=== PATIENT | male | born 1940 | race Caucasian/White ===

== ENCOUNTER 2017-03-23 07:24 | Day surgery (SDC) | payer MEDICARE, OTHER ==
[~2017-03-23] VITALS: Ht 180.3 cm; Wt 93.8 kg
[2017-04-30] MEDS ORDERED: TENORMIN DPS50 MG PO (13:58)
[2017-04-30] MEDS ORDERED: NORVASC DPS10 MG PO (13:58)
[2017-04-30] MEDS ORDERED: LIPITOR40 MG PO (13:58)
[2017-04-30] MEDS ORDERED: GLUCOPHAGE1000 MG PO (13:59)
[2017-04-30] MEDS ORDERED: LOTENSIN DPS20 MG PO (13:59)
[2017-04-30] MEDS ORDERED: GLUCOTROL DPS5 MG PO (13:59)
[2017-04-30] MEDS ORDERED: COLACE-DPS100 MG PO (14:00)
[2017-04-30] MEDS ORDERED: FISH OIL 1,2001 EACH PO (14:00)
[2017-04-30] MEDS ORDERED: ASPIRIN EC81 MG PO (14:00)
[2017-04-30] MEDS ORDERED: THERAPEUTIC MUL1 TAB PO (14:00)
[2017-04-30] MEDS ORDERED: TYLENOL DPS325 MG PO (14:01)
[2017-04-30] MEDS ORDERED: PERCOCET 5 DPS1 TAB PO (14:01)
[2017-04-30] MEDS ORDERED: VALIUM-DPS5 MG PO (14:01)
[2017-04-30] MEDS ORDERED: BACITRACIN15 G1 TP (14:01)
== END 2017-03-23 14:08 | disposition home or self-care (01) ==
LOC: SSS 07:24 → RAD.S 07:24 → SSS 08:30 → RAD.S 14:08
PROC: B02BY0Z Computerized Tomography (CT Scan) of Spinal Cord using Other Contrast, Unenhanced and Enhanced (ICD-10-PCS; principal; 2017-03-23)
DX: M47.26 Other spondylosis with radiculopathy, lumbar region (principal); M43.17 Spondylolisthesis, lumbosacral region; M48.06 Spinal stenosis, lumbar region; G57.03 Lesion of sciatic nerve, bilateral lower limbs

== ENCOUNTER 2017-04-27 05:37 | Inpatient (IN) | payer MEDICARE, OTHER ==
[~2017-04-27] VITALS: Ht 180.3 cm; Wt 91.0 kg
[2017-04-30] MEDS ORDERED: TENORMIN DPS50 MG PO (13:58)
[2017-04-30] MEDS ORDERED: NORVASC DPS10 MG PO (13:58)
[2017-04-30] MEDS ORDERED: LIPITOR40 MG PO (13:58)
[2017-04-30] MEDS ORDERED: GLUCOPHAGE1000 MG PO (13:59)
[2017-04-30] MEDS ORDERED: LOTENSIN DPS20 MG PO (13:59)
[2017-04-30] MEDS ORDERED: GLUCOTROL DPS5 MG PO (13:59)
[2017-04-30] MEDS ORDERED: COLACE-DPS100 MG PO (14:00)
[2017-04-30] MEDS ORDERED: ASPIRIN EC81 MG PO (14:00)
[2017-04-30] MEDS ORDERED: FISH OIL 1,2001 EACH PO (14:00)
[2017-04-30] MEDS ORDERED: THERAPEUTIC MUL1 TAB PO (14:00)
[2017-04-30] MEDS ORDERED: PERCOCET 5 DPS1 TAB PO (14:01)
[2017-04-30] MEDS ORDERED: BACITRACIN15 G1 TP (14:01)
[2017-04-30] MEDS ORDERED: TYLENOL DPS325 MG PO (14:01)
[2017-04-30] MEDS ORDERED: VALIUM-DPS5 MG PO (14:01)
--- NOTE | 2017-05-01 08:28 | OR ---
ADMIT: 04/27/2017 RM/LOC: 509 [facility] MR#: [id number] [address] [address] MARC GIBBS [address] [place] [address] Operative/Delivery Room Report SEX: M AGE: 77 : 1940 Corrected: 04/28/201730 djs SURGERY DATE: 04/27/2017 SURGEON: Darvin Lincoln MD PREOPERATIVE DIAGNOSIS: Low back pain with lumbar 5-sacral 1 isthmic spondylolisthesis with bilateral radiculopathy at L5 and S1. POSTOPERATIVE DIAGNOSIS: Low back pain with lumbar 5-sacral 1 isthmic spondylolisthesis with bilateral radiculopathy at L5 and S1. GRAVEL INSPECTOR: Mimi House APRN PROCEDURE: 1. Wide Alston-type laminectomy at lumbar 5-sacral 1 with decompression of the neural foramina and thecal sac. 2. Wide anterior diskectomy for decompression of thecal sac. 3. Transforaminal lumbar interbody fusion with arthrodesis at lumbar 5- sacral 1, both in the posterolateral as well as transforaminal interbody space. 4. [place] of autograft through same incision with reimplantation after morcellation. 5. Implantation of structural fibular allograft at the L5-S1 intervertebral space. 6. Bilateral posterior pedicle screw placement at lumbar 5-sacral 1. 7. Intraoperative fluoroscopy and computed tomographic imaging. 8. Intraoperative neuromonitoring with no change from baseline in the legs. There was some question of decreased signals in the arms, which underwent troubleshooting throughout the case with Anesthesiology. DESCRIPTION OF PROCEDURE: After gaining informed consent, the patient was taken to the operative theater, placed under general endotracheal anesthesia in supine position, turned prone on a Sj table. All pressure points purposely padded prior to performing the procedure. He was prepped and draped in the usual sterile fashion. A time-out was utilized to ascertain the correct site and side of surgery as well as other pertinent patient historical information. Counts were obtained at the beginning and at the end of the case with no change betwixt the two. Antibiotics were given within 1 hour of incision. Fluoroscope was brought into the field and the attention was turned to discerning the lumbar 5-sacral 1 level. Once this was done, incision was fashioned. This was then taken down through the thoracodorsal fascia sharply into the paraspinous region. The muscles were subperiosteally dissected off the spinous process and lamina and out over top of the facets. A free and isthmic spondylolisthetic L5-S1 posterior element was noted. This was resected utilizing a curette revealing a widely decompressed thecal sac. Bone was then bitten and drilled off laterally out into the recesses resecting a widely ADMIT: 04/27/2017 RM/LOC: 509 [facility] MR#: [id number] [address] [address] MARC GIBBS [address] [place] [address] Operative/Delivery Room Report SEX: M AGE: 77 : 1940 overgrown ligament over top of the nerve roots bilaterally at L5-S1. Once this was completed, pristine hemostasis was obtained. Attention was turned to instrumentation. Verifying the posterior representation of the pedicle, this was decorticated and then the pedicle finder was then passed through the pedicle into the vertebral body bilaterally at L5 and S1 sounding into the screw holes and then placing vancomycin powder coated pedicle screws at L5 and S1. Stimulation did not reveal any breach rhythm. Once this was completed, the disk space was encountered. Very cautiously approaching from the left with limited medial distraction, the disk space was incised. Various curettes, rongeurs, and rasps were used to resect as much disk as was possible, widely decompressing, resecting the cartilage as well as on the endplates and preparing the area for arthrodesis after decompressing from an anterior standpoint. Once this was completed, the morcellated allograft was brought into the field and very generously packed into the intervertebral space at L5-S1. An appropriately sized cadaveric tricortical allograft was then brought in and very cautiously tapped into place with no sign of complication. Once this was completed, pristine hemostasis was obtained and CT scan was obtained visualizing the instrumentation. At this point, attention was turned to closure. The posterior instrumentation was connected including cross connectors and everything was torqued to appropriate setting. Once this was completed, the morcellated allograft and autograft was then brought into the field and packed in the posterolateral recesses for arthrodesis there as well as in the interbody space. Pristine hemostasis was obtained. Attention was turned to closure. The KAVITA drain was daylighted out and the thoracodorsal fascia was closed with simple interrupted 0 Vicryl. Simple interrupted 2-0 Vicryl was used in hypodermic tissue and 3-0 Strata fix on the skin in a subcuticular fashion. Stab incisions were fashioned in the paraspinous region cephalad, and then the ropivacaine catheters were tunneled in, loaded with 5 mL of 0.5% Marcaine on each side and connected to the ropivacaine ball. ADMIT: 04/27/2017 RM/LOC: 509 [facility] MR#: [id number] [address] [address] MARC GIBBS [address] [place] [address] Operative/Delivery Room Report SEX: M AGE: 77 : 1940 Ms. Lacy assisted with suction, retraction, and closure at the end of the case. COMPLICATIONS: None. ESTIMATED BLOOD LOSS: Charted. SPECIMEN: None. DISPOSITION: Extubated and taken to postanesthesia care unit. Darvin Lincoln MD/ fracisco JOB #: [id number] CC: Darvin Lincoln, Attending Physician Logan Fatima, [facility] Physician Corrected: 04/28/2017 0930 veronika
--- NOTE | 2017-05-20 12:15 | DS ---
ADMIT: 04/27/2017 RM/LOC: 509 [facility] MR#: [id number] [facility]#: [id number] [id number] [facility] [address] [place], [place] [address] MARC GIBBS Danny [address] [place] [address] General Discharge Summary SEX: M AGE: 77 : 1940 ADMISSION DATE: 04/27/2017 DISCHARGE DATE: 04/29/2017 SERVICE: Neurosurgery. REASON FOR ADMISSION: 1. Low back pain. 2. Lumbar spondylolisthesis. 3. Lumbar stenosis. 4. Lumbosacral radiculopathy. PROCEDURE: Transforaminal lumbar interbody fusion at lumbar 5, sacral 1. HOSPITAL COURSE: Mr. Gibbs tolerated his procedure well. Postoperatively, he was admitted to the Med/Surg floor for monitoring and care. Postop day #1, he was awake and alert. He was afebrile. His vital signs were stable. He was moving all extremities x4 with 5/5 strength. His dressing was clean, dry, and intact. His KAVITA drain was patent with serosanguineous drainage. His On-Q was patent. He did work with Physical Therapy and Occupational Therapy and tolerated this quite well. Postop day #2, he was awake and alert. He was afebrile, his vital signs were stable. He was moving all extremities x4 with 5/5 strength. His incision was clean, dry, and intact. His KAVITA drain had decreased serosanguineous drainage and was discontinued without difficulty. One Monocryl stitch was applied to the site, and he tolerated this quite well. His On-Q was patent and was discontinued. He was ambulating, urinating, and defecating per his norm and was requesting discharge home. DISCHARGE CONDITION: Good. MEDICATIONS: 1. Colace 100 mg p.o. b.i.d. 2. Bacitracin ointment to incision q.p.m. 3. Percocet 5/325, 1 to 2 p.o. q.4 hours p.r.n. 4. Valium 5 mg 1 to 2 tablets p.o. q.8 hours p.r.n. 5. Amlodipine 10 mg p.o. daily. 6. Atorvastatin 40 mg p.o. q.p.m. 7. Atenolol 50 mg p.o. b.i.d. 8. Benazepril 20 mg p.o. daily. 9. Glipizide 2.5 mg t.i.d. 10.Metformin 1000 mg b.i.d. 11.Aspirin enteric-coated 81 mg daily, may restart on 04/30/2017. 12.Fish oil 1200 mg b.i.d., can restart this on 05/01/2017. 13.Multivitamin daily. DISCHARGE INSTRUCTIONS: Per Dr. Lincoln. He can have a diabetic diet. He ADMIT: 04/27/2017 RM/LOC: 509 [facility] MR#: [id number] [address] [address] MARC GIBBS [address] [place] [address] General Discharge Summary SEX: M AGE: 77 : 1940 can shower, he should not take any tub baths, he should pat his incision dry. He should not lift anything greater than 15 pounds. He should not take any NSAIDs. He should not drive until he is seen in clinic. He will call with any questions or concerns including neurological worsening, signs or symptoms of infection, or any other issues. FOLLOWUP: He will follow up in clinic with Mimi in 2 weeks. DISPOSITION: He was discharged home. Total medc-cl-apml time for the discharge planning and care coordination was 30 minutes. Mimi House APRN / Darvin Lincoln MD / fracisco JOB #: [id number] CC: Darvin Lincoln MD, Attending Physician Logan Fatima MD, Family Physician
== END 2017-04-29 10:25 | disposition home or self-care (01) | DRG 460 ==
LOC: 5MS 05:37 → WOR 05:37 → 5MS 11:52
PROVIDERS: ADMIT Neurological Surgery
PROC: 0SB40ZZ Excision of Lumbosacral Disc, Open Approach (ICD-10-PCS; principal; 2017-04-27)
PROC: 0SG3071 Fusion of Lumbosacral Joint with Autologous Tissue Substitute, Posterior Approach, Posterior Column, Open Approach (ICD-10-PCS; principal; 2017-04-27)
DX: M43.17 Spondylolisthesis, lumbosacral region (principal); E11.9 Type 2 diabetes mellitus without complications; I10 Essential (primary) hypertension; M43.16 Spondylolisthesis, lumbar region; M54.17 Radiculopathy, lumbosacral region; I25.10 Atherosclerotic heart disease of native coronary artery without angina pectoris; M21.372 Foot drop, left foot; E78.5 Hyperlipidemia, unspecified; Z79.82 Long term (current) use of aspirin; Z79.84 Long term (current) use of oral hypoglycemic drugs; Z95.0 Presence of cardiac pacemaker; Z87.891 Personal history of nicotine dependence; Z95.1 Presence of aortocoronary bypass graft; I25.2 Old myocardial infarction

== ENCOUNTER 2017-05-02 19:46 | Emergency (ER) | payer MEDICARE, OTHER ==
[~2017-05-02 19:46] MED LIST: ASPIRIN EC81 MG PO; BACITRACIN15 G1 TP; COLACE-DPS100 MG PO; FISH OIL 1,2001 EACH PO; GLUCOPHAGE1000 MG PO; GLUCOTROL DPS5 MG PO; LIPITOR40 MG PO; LOTENSIN DPS20 MG PO; NORVASC DPS10 MG PO; PERCOCET 5 DPS1 TAB PO; TENORMIN DPS50 MG PO; THERAPEUTIC MUL1 TAB PO; TYLENOL DPS325 MG PO; VALIUM-DPS5 MG PO
--- NOTE | 2017-05-03 06:58 | ER ---
ADMIT: 05/02/2017 RM/LOC: ER [facility] MR#: [id number] [address] [address] MARC GIBBS [address] [place] [address] Emergency Room Report SEX: M AGE: 77 : 1940 DATE: 05/02/2017 HISTORY OF PRESENT ILLNESS: With the past medical history of chronic low back pain and L5-S1 spondylolisthesis and radiculopathy, status post laminectomy, anterior diskectomy, and transforaminal lumbar interbody fusion and arthrodesis on 04/27/2017. The patient states after he was discharged from the hospital, he was able to walk, but with some back pain, which has not changed since then. The patient states after the discharge, he had problem starting urination, the patient had hesitancy. The patient denied any dysuria or hematuria or frequency. The patient states that he believes after urination, the bladder is not emptied completely. The patient denies nausea, vomiting, or fever. The patient denies any saddle anesthesia, new numbness or weakness, and new problem with walking and gait. The patient denies any stool incontinence or retention. PHYSICAL EXAMINATION: GENERAL: The patient is in no obvious pain or distress while in bed. HEAD and NECK: Normal and negative. CHEST: Clear bilaterally. HEART: Normal Heart sounds. ABDOMEN: Soft: PELVIS: Stable. NEUROLOGICAL: Motor and sensory are grossly equal and normal. The patient can walk and stand on tiptoes and heels. The patient has equal bilateral normal reflexes. RECTUM: Rectal tone is normal on digital rectal exam. The rest of the physical examination is noncontributory and negative. EMERGENCY ROOM COURSE: Bladder scan showed 88 mL of urine in the bladder. The patient urinated an hour ago. UA showed only 3 red blood cells and [address] Scherer was consulted as he is covering for Dr. Lincoln. After discussing the case, he preferred the patient to be discharged to home with Flomax and follow up with the Urology Clinic and follow up with Dr. Scherer's clinic on Thursday. At first, Dr. Scherer was willing to set up an appointment for MRI on Thursday, but considering the patient had pacemaker, which per patient is no MRI compatible pacemaker, Dr. Scherer decided to hold on the MRI. Plan was discussed with the patient. The patient was advised to come back to the ER immediately if there is sudden increase in the pain, new numbness or weaknesses, new saddle anesthesia, or any new urinary or stool incontinence or questionable retention. The patient is stable and was discharged home with a prescription for Flomax. Jean Claude Zhang MD/ fracisco JOB #: [id number] CC: Jean Claude Zhang MD, Attending Physician ADMIT: 05/02/2017 RM/LOC: ER [facility] MR#: [id number] [address] [place] [id number] MARC GIBBS [address] [place] [address] Emergency Room Report SEX: M AGE: 77 : 1940 Aashish Scherer MD, Family Physician
== END 2017-05-02 21:50 | disposition home or self-care (01) ==
LOC: ER 19:46
PROC: BT20ZZZ Computerized Tomography (CT Scan) of Bladder (ICD-10-PCS; principal; 2017-05-02)
DX: R39.11 Hesitancy of micturition (principal); I10 Essential (primary) hypertension; E11.9 Type 2 diabetes mellitus without complications; Z95.0 Presence of cardiac pacemaker; Z95.1 Presence of aortocoronary bypass graft; Z90.49 Acquired absence of other specified parts of digestive tract; Z79.84 Long term (current) use of oral hypoglycemic drugs; Z79.82 Long term (current) use of aspirin; Z79.899 Other long term (current) drug therapy